=== PATIENT | female | born 2000 | race Hispanic/Latino ===

== ENCOUNTER 2019-09-14 12:31 | Emergency (ER) | payer OTHER ==
[~2019-09-14] VITALS: Ht 162.6 cm; Wt 90.7 kg
--- OUTSIDE RECORDS SUMMARY | 2019-09-14 12:33 | XMS REPORT | Clinical Summary ---
Author Author [employer] [facility] Organization [employer] [facility] Address Unknown Phone Unavailable Care Team Providers Care Pot Feeder Name Role Phone Asked, No Pcp PCP Unavailable Allergies Comments Active Allergy Reactions Severity Noted Date Adhesive Tape-Silicones Itching, Rash Low 2018 Medications No known medications Active Problems Problem Noted Date 07/23/2018 Encounters Care Team Description Date Type Specialty Dell Rios MD Vaginal bleeding (Primary Dx) 09/12/2019 Emergency Emergency Medicine after 09/13/2018 Social History Date Tobacco Use Types Packs/Day Years Used Former Smoker Cigarettes Smokeless Tobacco: Never Used Comments: pack per week prior to pregnan cy Drinks/Week oz/Week Comments Alcohol Use No Sex Assigned at Date Recorded Not on file Industry Job Start Date Occupation Not on file Not on file Not on file Travel End Travel History Travel Start No recent travel history available. Last Filed Vital Signs Reading Time Taken Comments Vital Sign 127/72 09/12/2019 12:16 PM CDT Blood Pressure 75 09/12/2019 12:16 PM CDT Pulse 36.8 C (98.3 F) 09/12/2019 12:16 PM CDT Temperature 18 09/12/2019 12:16 PM CDT Respiratory Rate 98% 09/12/2019 12:16 PM CDT Oxygen Saturation - - Inhaled Oxygen Concentration 90.7 kg (200 lb) 09/12/2019 12:13 PM CDT Weight 162.6 cm (5' 4") 09/12/2019 12:13 PM CDT Height 34.33 09/12/2019 12:13 PM CDT Body Mass Index Plan of Treatment Health Maintenance Due Date Last Done Comments CHLAMYDIA SCREENING 12/28/2018 12/28/2017 INFLUENZA VACCINE 11/05/2019 01/25/2018 Procedures Comments Procedure Name Priority Date/Time Associated Diag nosis US PELVIC TRANSVAGINAL STAT 09/12/2019 2:24 PM CDT US PELVIC TRANSABDOMINAL STAT 09/12/2019 2:23 PM CDT URINALYSIS SCREEN AND STAT 09/12/2019 MICROSCOPY, WITH REFLEX 1:40 PM CDT TO CULTURE URINE CULTURE STAT 09/12/2019 1:40 PM CDT ESTIMATED GFR STAT 09/12/2019 1:20 PM CDT RH TYPE STAT 09/12/2019 1:20 PM CDT HCG QUANTITATIVE, SERUM STAT 09/12/2019 1:20 PM CDT COMPREHENSIVE METABOLIC STAT 09/12/2019 PANEL 1:20 PM CDT HC COMPLETE BLD COUNT STAT 09/12/2019 W/AUTO DIFF 1:20 PM CDT after 09/13/2018 Results * US Pelvic Transvaginal (09/12/2019 2:24 PM CDT) Specimen Narrative Performed At EXAMINATION: US PELVIC TRANSABDOMINAL, US PELVIC TR ANSVAGINAL [facility] CLINICAL HISTORY: vaginal bleeding po ssible fibroids COMPARISON: None. TECHNIQUE:Transabdominal and endovagina l sonographic images of the pelvis were obtained. Grayscale, color Doppler, and spectral waveform analysis of the ovarian vessels was performed. FINDINGS: The uterus is retroverted and measures 6.3 x 3.5 x 4.4 cm. No uterine fibroids. The endometrial stripe measures 0.4 cm. The right ovary measures 3.4 x 2.0 x 1. 8 cm. Normal Doppler flow was present. The left ovary measures 3.5 x 1.7 x 1.9 cm. Normal Doppler flow was present. There is no free fluid in the pelvic cu l-de-sac. IMPRESSION: The uterus is retroverted with no evide nce of uterine fibroids. Otherwise, unremarkable pelvic ultrasound examinat ion. [facility]-[id number] Dictated and approved by radiology resi dent/fellow: Armand Lewis M.D. I, Candelaria Segura MD, personally revie wed the images and resident's/fellow's findings and agree with the final repor t. Procedure Note Interface, Radiology Results Incoming - 09/12/2019 3:01 PM CDT EXAMINATION: US PELVIC TRANSABDOMINAL, US PELVIC TRANSVAGINAL CLINICAL HISTORY: vaginal bleeding possible fibroids COMPARISON: None. TECHNIQUE:Transabdominal and endovaginal sonographic images of the pelvis were obtained. Grayscale, color Doppler, and spectral waveform analysis of the ovarian vessels was performed. FINDINGS: The uterus is retroverted and measures 6.3 x 3.5 x 4.4 cm. No uterine fibroids. The endometrial stripe measures 0.4 cm. The right ovary measures 3.4 x 2.0 x 1.8 cm. Normal Doppler flow was present. The left ovary measures 3.5 x 1.7 x 1.9 cm. Normal Doppler flow was present. There is no free fluid in the pelvic cul-de-sac. IMPRESSION: The uterus is retroverted with no evidence of uterine fibroids. Otherwise, unremarkable pelvic ultrasound examination. [facility]-[id number] Dictated and approved by family medicine resident/fellow: Armand Lewis M.D. I, Candelaria Segura MD, personally reviewed the images and resident's/fellow's findings and agree with the final report. Performing Organization Address City/State/[facility] Ph one Number [facility] [address] [place] [address] * US Pelvic Transabdominal (09/12/2019 2:23 PM CDT) Specimen Narrative Performed At EXAMINATION: US PELVIC TRANSABDOMINAL, US PELVIC TR ANSVAGINAL [facility] CLINICAL HISTORY: vaginal bleeding po ssible fibroids COMPARISON: None. TECHNIQUE:Transabdominal and endovagina l sonographic images of the pelvis were obtained. Grayscale, color Doppler, and spectral waveform analysis of the ovarian vessels was performed. FINDINGS: The uterus is retroverted and measures 6.3 x 3.5 x 4.4 cm. No uterine fibroids. The endometrial stripe measures 0.4 cm. The right ovary measures 3.4 x 2.0 x 1. 8 cm. Normal Doppler flow was present. The left ovary measures 3.5 x 1.7 x 1.9 cm. Normal Doppler flow was present. There is no free fluid in the pelvic cu l-de-sac. IMPRESSION: The uterus is retroverted with no evide nce of uterine fibroids. Otherwise, unremarkable pelvic ultrasound examinat ion. [facility]-[id number] Dictated and approved by radiology resi dent/fellow: Armand Lewis M.D. I, Candelaria Segura MD, personally revie wed the images and resident's/fellow's findings and agree with the final repor t. Procedure Note [facility], Radiology Results Incoming - 09/12/2019 3:01 PM CDT EXAMINATION: US PELVIC TRANSABDOMINAL, US PELVIC TRANSVAGINAL CLINICAL HISTORY: vaginal bleeding possible fibroids COMPARISON: None. TECHNIQUE:Transabdominal and endovaginal sonographic images of the pelvis were obtained. Grayscale, color Doppler, and spectral waveform analysis of the ovarian vessels was performed. FINDINGS: The uterus is retroverted and measures 6.3 x 3.5 x 4.4 cm. No uterine fibroids. The endometrial stripe measures 0.4 cm. The right ovary measures 3.4 x 2.0 x 1.8 cm. Normal Doppler flow was present. The left ovary measures 3.5 x 1.7 x 1.9 cm. Normal Doppler flow was present. There is no free fluid in the pelvic cul-de-sac. IMPRESSION: The uterus is retroverted with no evidence of uterine fibroids. Otherwise, unremarkable pelvic ultrasound examination. [facility]-[id number] Dictated and approved by family medicine resident/fellow: Armand Lewis M.D. I, Candelaria Segura MD, personally reviewed the images and resident's/fellow's findings and agree with the final report. Performing Organization Address City/State/[facility] Ph one Number [facility] [address] [place] [address] * Urinalysis screen and microscopy, with reflex to culture (09/12/2019 1:40 PM CDT) Specimen site Clean catch [facility] Color, UA Yellow [facility] Appearance, UA Clear [facility] Specific 1.026 1.001 - 1.035 [facility] gravity, UA [facility] pH, UA 5.0 5.0 - 8.5 [facility] Protein, UA 1+ (A) Negative [facility] Glucose, UA Negative Negative [facility] Ketones, UA 2+ (A) Negative [facility] Bilirubin, UA Negative Negative [facility] Blood, UA Large (A) Negative [facility] Nitrite, UA Negative Negative [facility] Urobilinogen, Negative <2.0 [facility] Leukocyte Negative Negative [facility] esterase, UA [facility] Epithelial Many Few /HPF [facility] cells, UA [facility] WBC, UA 0-5 0 - 4 /HPF [facility] RBC, UA 61-80 (H) 0 - 5 /HPF [facility] Bacteria, UA None seen None seen [facility] Yeast, UA None seen [facility] Yeast with None seen [facility] pseudohyphae, [facility] Specimen Urine Performing Organization Address City/[facility] Ph one Number [facility] DEPARTMENT [address] [place] [address] 58 PATHOLOGY AND GENOMIC MEDICINE [address] * Urine culture (09/12/2019 1:40 PM CDT) Urine culture SEE COMMENTComment: [facility] Bacteriuria screen negative. [facility] Specimen Urine Performing Organization Address [facility] one Number [facility] DEPARTMENT OF [address] [place] [address] [place] [address] 58 PATHOLOGY AND GENOMIC MEDICINE [address] * Estimated GFR (09/12/2019 1:20 PM CDT) Estimated GFR >=90 mL/min/1.73 m2 [facility] Comment: [facility] Interpretation G1 >=90 Normal or high G2 60-89 Mildly decreased G3a 45-59 Mildly to moderately decreased G3b 30-44 Moderately to severely decreased G4 15-29 Severely decreased G5 <15 Kidney failure The eGFR was calculated using the Chronic Kidney Disease Epidemiology Collaboration (CKD-EPI) equation. Interpretation is based on recommendations of the National Kidney Foundation-Kidney Disease Outcomes Quality Initiative (NKF-KDOQI) published in 2014. Specimen Performing Organization Address City/[facility] Ph one Number [facility] DEPARTMENT OF [address] [place] [address] [place], [place] [address] PATHOLOGY AND GENOMIC MEDICINE [address] [place] [id number] [facility] * RH type (09/12/2019 1:20 PM CDT) Rh type POS [facility] Specimen Blood Performing Organization Address [facility] Ph one Number [facility] DEPARTMENT OF [address] [place] [address]. [place], [place] [address] PATHOLOGY AND GENOMIC MEDICINE [address] [place] [address] * CBC with platelet and differential (09/12/2019 1:20 PM CDT) WBC 6.32 4.50 - 11.00 k/uL [facility] RBC 4.64 4.20 - 5.50 m/uL [facility] HGB 13.7 12.0 - 16.0 g/dL [facility] HCT 40.8 37.0 - 47.0 % [facility] MCV 87.9 82.0 - 100.0 fL [facility] MCH 29.5 27.0 - 34.0 pg [facility] MCHC 33.6 31.0 - 37.0 g/dL [facility] RDW - SD 41.1 37.0 - 55.0 fL [facility] MPV 11.4 8.8 - 13.2 fL [facility] Platelet count 328 150 - 400 k/uL [facility] Nucleated RBC 0.00 /100 WBC [facility] Neutrophils 59.8 39.0 - 69.0 % [facility] Lymphocytes 26.7 25.0 - 45.0 % [facility] Monocytes 8.4 0.0 - 10.0 % [facility] Eosinophils 4.0 0.0 - 5.0 % [facility] Basophils 0.8 0.0 - 1.0 % [facility] Specimen Blood Performing Organization Address City/[facility] Ph one Number [facility] DEPARTMENT OF [address] [place] [address] [place], [place] [address] PATHOLOGY AND GENOMIC MEDICINE [address] [place] [address] [facility] * hCG quantitative, serum (09/12/2019 1:20 PM CDT) hCG <1 0 - 5 mIU/mL [facility] quantitative, Comment: [facility] serum Reference range for HCG Quant [facility] applies to males and non- females. Post Menopausal 0.0 - 8.1 mIU/mL Specimen Blood Performing Organization Address City/State/[employer] Ph one Number [facility] [place] [address] [place], [place] [address] PATHOLOGY AND GENOMIC MEDICINE [facility] [address] [place] [address] [facility] * Comprehensive metabolic panel (09/12/2019 1:20 PM CDT) [facility] Sodium 136 135 - 148 mEq/L [facility] Potassium 4.0 3.5 - 5.0 mEq/L [facility] Chloride 101 98 - 112 mEq/L [facility] CO2 22 (L) 24 - 31 mEq/L [facility] Anion gap 13@ANIO 7 - 15 mEq/L [facility] BUN 11 6 - 20 mg/dL [facility] Creatinine 0.70 0.50 - 0.90 mg/dL [facility] Glucose 78 65 - 99 mg/dL [facility] Calcium 10.0 8.3 - 10.2 mg/dL [facility] Protein 7.7 6.3 - 8.3 g/dL [facility] Comment: [facility] [place] 4.6-7.0 g/dL 1 week 4.4-7.6 g/dL 7 months-1year 5.1-7.3 g/dL 1-2 years 5.6-7.5 g/dL >3 years 6.0-8.0 g/dL 18-150 6.3-8.3 g/dL Albumin 4.7 3.5 - 5.0 g/dL [facility] A/G ratio 1.6 0.7 - 3.8 [facility] Alkaline 55 35 - 104 U/L [facility] phosphatase [facility] AST 15 10 - 35 U/L [facility] ALT 10 5 - 50 U/L [facility] Total bilirubin 0.5 0.0 - 1.2 mg/dL [facility] Specimen Blood Performing Organization Address City/State/Zipcode Ph [place] [facility] [place] [address] [place] [address] PATHOLOGY AND GENOMIC MEDICINE [facility] [address] [place] [address] [facility] after 09/13/2018 Insurance Type Payer Benefit Subscriber ID Effective Phone Address Plan / Dates Group [employer] [facility] xxxxxxxxx [facility] [place] Present [facility] Advance Directives For more information, please contact: [phone] 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
--- OUTSIDE RECORDS SUMMARY | 2019-09-14 12:34 | XMS REPORT | Continuity of Care Document ---
Author Author [facility] t Organization [facility] Address [address] [place] [address] Phone Unavailable Care Team Providers Care Plug Saw Operator Name Role Phone Asked, Pcp No PCP Unavailable Gabriel ROCA, Wili Sharpe Attphys [phone] Payers Payer Name Policy Type Policy Number Effective Date Expiration Date [facility]/STAR [id number]/04/25 18-PresentO xxxxxxxxx 2018 00:00:00 Karthikeyan Ochoa Problems Condition Name Condition Details Condition Category Status Onset Date Resolution Date Last Treatment Date Treating Clinician Comments Source Disease Active 2018-07-23 00:00:00 Karthikeyan Ochoa Allergies, Adverse Reactions, Alerts Allergy Name Allergy Type Status Severity Reaction(s) Onset Date Inacti ve Date Treating Clinician Comments Source Adhesive Tape-Silicones Propensity to adverse reactions to drug Act luis enrique Itching, Rash 2018-07-24 00:00:00 Karthikeyan Ochoa No Known Allergies DA Active U 2018-05-24 00:00:00 [facility] No Known Drug Intolerances DA Active U 2008-10-02 00:00:0 0 [facility] Not Converted 80. See Text. DA Active U 2008-10-02 00:00 :00 [facility] Social History Social Habit Start Date Stop Date Quantity Comments Source History of tobacco use Cigarette Smoker Karthikeyan Ochoa Sex Assigned At [facility] Alcohol intake 2018-08-04 00:00:00 2018-08-04 00:00:00 Current non-drinker of alcohol (finding) Karthikeyan Ochoa Tobacco Comment 2017-12-08 00:00:00 2017-12-08 00:00:00 pack per week prior to Karthikeyan Ochoa Smoking Status Start Date Stop Date Source Former smoker 2018-08-04 00:00:00 2018-08-04 00:00:00 Karthikeyan Ochoa Medications This patient has no known medications. Vital Signs Vital Name Observation Time Observation Value Comments Source Systolic blood pressure 2019-09-12 12:16:04 127 mm[Hg] Karthikeyan Ochoa Diastolic blood pressure 2019-09-12 12:16:04 72 mm[Hg] Karthikeyan Ochoa Heart rate 2019-09-12 12:16:04 75 /min Karthikeyan Ochoa Body temperature 2019-09-12 12:16:04 36.83 [facility] Respiratory rate 2019-09-12 12:16:04 18 /min [facility] Oxygen saturation in Arterial blood by Pulse oximetry 09-11 12:16:04 98 /min Karthikeyan Ochoa Body height 2019-09-12 12:13:00 162.6 cm Karthikeyan Ochoa Body weight 2019-09-12 12:13:00 90.719 kg Karthikeyan Ochoa BMI 2019-09-12 12:13:00 34.33 kg/m2 Karthikeyan Ochoa Procedures Procedure Date / Time Performed Performing Clinician [facility] e US PELVIC TRANSVAGINAL 2019-09-12 14:24:07 Jason Riso US PELVIC TRANSABDOMINAL 2019-09-12 14:23:42 Jason Rios URINE CULTURE 2019-09-12 13:40:00 [facility] R[facility] URINALYSIS SCREEN AND MICROSCOPY, WITH REFLEX TO CULTURE 13:40:00 Jason Rios HC COMPLETE BLD COUNT W/AUTO DIFF 2019-09-12 13:20:00 Mikayla Rios se COMPREHENSIVE METABOLIC PANEL 2019-09-12 13:20:00 Jason Rios HCG QUANTITATIVE, SERUM 2019-09-12 13:20:00 Jason Rios RH TYPE 2019-09-12 13:20:00 Gabriel, Jason [facility] ESTIMATED GFR 2019-09-12 13:20:00 Gabriel, Jason [facility] Plan of Care Planned Activity Planned Date Details Comments Source Future Scheduled Test 2019-11-05 00:00:00 INFLUENZA VACCINE [code = INFLUENZA VACCINE] Karthikeyan Ochoa Future Scheduled Test 2018-12-28 00:00:00 CHLAMYDIA SCREENIN G [code = CHLAMYDIA SCREENING] [facility] Encounters Start Date/Time End Date/Time Encounter Type Admission Type Attendi [facility] Care Department Encounter ID Source 2019-09-12 00:00:00 2019-09-12 00:00:00 Emergency JASON RIOS 064 [id number] [facility] Results Test Description Test Time Test Comments Results Result Comments Source US Pelvic Transvaginal 2019-09-12 14:58:29 In [facility], Radiology Results 09/12/2019 3:01 PM CDTEXAMINATION: US PELVIC TRANSABDOMINAL, US PELVIC TRANSVAGINALCLINICAL HISTORY: vaginal bleeding possible fibroidsCOMPARISON: None.TECHNIQUE:Transabdominal and endovaginal sonographic images of the pelvis were obtained. Grayscale, color Doppler, and spectral waveform analysis of the ovarian vessels was performed.FINDINGS:The uterus is retroverted and measures 6.3 x 3.5 x 4.4 cm. No uterine fibroids.The endometrial stripe measures 0.4 cm. The right ovary measures 3.4 x 2.0 x 1.8 cm. Normal Doppler flow was present.The left ovary measures 3.5 x 1.7 x 1.9 cm. Normal Doppler flow was present.There is no free fluid in the pelvic cul-de-sac.IMPRESSION:The uterus is retroverted with no evidence of uterine fibroids. Otherwise, unremarkable pelvic ultrasound examination.[facility]- [id number] and approved by finance vice president/fellow: Armand Lewis M.D.I, Candelaria Segura MD, personally reviewed the images and resident's/fellow's findings and agree with the final report. Karthikeyan Ochoa US Pelvic Transabdominal 2019-09-12 14:58:29 Interface, Radiology Results 09/12/2019 3:01 PM CDTEXAMINATION: US PELVIC TRANSABDOMINAL, US PELVIC TRANSVAGINALCLINICAL HISTORY: vaginal bleeding possible fibroidsCOMPARISON: None.TECHNIQUE:Transabdominal and endovaginal sonographic images of the pelvis were obtained. Grayscale, color Doppler, and spectral waveform analysis of the ovarian vessels was performed.FINDINGS:The uterus is retroverted and measures 6.3 x 3.5 x 4.4 cm. No uterine fibroids.The endometrial stripe measures 0.4 cm. The right ovary measures 3.4 x 2.0 x 1.8 cm. Normal Doppler flow was present.The left ovary measures 3.5 x 1.7 x 1.9 cm. Normal Doppler flow was present.There is no free fluid in the pelvic cul-de-sac.IMPRESSION:The uterus is retroverted with no evidence of uterine fibroids. Otherwise, unremarkable pelvic ultrasound examination.[facility]- [id number] and approved by finance vice president/fellow: Adeline Quigley, Candelaria Segura MD, personally reviewed the images and resident's/fellow's findings and agree with the final report. [facility] Comprehensive metabolic panel 2019-09-12 14:05:00 Test Item Sodium (test code = 2951-2) 136 135- 148 mEq/L Potassium (test code = 2823-3) 4.0 3.5- 5.0 mEq/L Chloride (test code = 2075-0) 101 98- 112 mEq/L CO2 (test code = 2027-9) 22 24- 31 mEq/L L Anion gap (test code = 02065-3) 13@ANIO 7- 15 mEq/L BUN (test code = 3094-0) 11 mg/dL 6-20 Creatinine (test code = 2160-0) 0.70 mg/dL 0.5-0.9 Glucose (test code = 2345-7) 78 mg/dL 65-99 Calcium (test code = 98435-1) 10.0 mg/dL 8.3-10.2 Protein (test code = 2885-2) 7.7 g/dL 6.3-8.3 -[place] 4.6- 7.0 g/dL1 week 4.4-7.6 g/dL7 months-1year 5.1-7.3 g/dL1-2 years 5.6-7.5 g/dL>3 years 6.0-8.0 g/gY85-155 6.3-8.3 g/dL Albumin (test code = 1751-7) 4.7 g/dL 3.5-5 A/G ratio (test code = 1759-0) 1.6 0.7-3.8 Alkaline phosphatase (test code = 6768-6) 55 U/L 35-104 AST (test code = 1920-8) 15 U/L 10-35 ALT (test code = 1742-6) 10 U/L 5-50 Total bilirubin (test code = 1974-2) 0.5 mg/dL 0-1.2 Lab Interpretation (test code = 60657-5) Abnormal [facility] MethodistEstimated [id number] 14:05:00* Test Item Value Reference Range Interpretation Comments Estimated GFR (test code = 5488) >=90 mL/min/1.73 m2 Catergory Units InterpretationG1 >=90 Normal or highG2 60-89 Mildly uaummhdguH0c 45-59 Mildly to moderately mrwdksuohG3q 30-44 Moderately to severely decreasedG4 15-29 Severely decreasedG5 <15 Kidney failureThe eGFR was calculated using the Chronic Kidney Disease Epidemiology Collaboration (CKD-EPI) equation. Interpretation is based on recommendations of the National Kidney Foundation-Kidney Disease Outcomes Quality Initiative (NKF-KDOQI) published in 2014. [facility] MethodistRH [id number] 13:58:00* Test Item Value Reference Range Interpretation Comments Rh type (test code = 59379-8) POS [facility] MethodistUrine [id number] 13:54:37* Test Item Value Reference Range Interpretation Comments Urine culture (test code = 2542308) SEE COMMENT Bacteriuria screen negative. [facility] MethodistUrinalysis screen and microscopy, with reflex to culture 2019-09-12 13:54:35* Test Item Value Reference Range Interpretation Comments Specimen site (test code = 8116686) Clean catch Color, UA (test code = 5778-6) Yellow Appearance, UA (test code = 5767-9) Clear Specific gravity, UA (test code = 5811-5) 1.026 1.001-1.035 pH, UA (test code = 5803-2) 5.0 5.0-8.5 Protein, UA (test code = 79076-6) 1+ Negative A Glucose, UA (test code = 97624-5) Negative Negative Ketones, UA (test code = 2514-8) 2+ Negative A Bilirubin, UA (test code = 5770-3) Negative Negative Blood, UA (test code = 5794-3) Large Negative A Nitrite, UA (test code = 5802-4) Negative Negative Urobilinogen, UA (test code = 92035-0) Negative <2.0 Leukocyte esterase, UA (test code = 5799-2) Negative Negative Epithelial cells, UA (test code = 5787-7) Many Few /HPF WBC, UA (test code = 5821-4) 0-5 0- 4 /HPF RBC, UA (test code = 45004-1) 61-80 0- 5 /HPF H Bacteria, UA (test code = 82190-6) None seen None seen Yeast, UA (test code = 43606-2) None seen Yeast with pseudohyphae, UA (test code = 59402-6) None seen Lab Interpretation (test code = 30888-9) Abnormal [facility] MethodisthCG quantitative, [id number] 13:54:04* Test Item Value Reference Range Interpretation Comments hCG quantitative, serum (test code = 36266-8) <1 0- 5 mIU /mL Reference range for HCG Quant applies to males and non-females.Post Menopausal 0.0 - 8.1 mIU/mL [facility] MethodistCBC with platelet and [id number] 13:50:54* Test Item Value Reference Range Interpretation Comments WBC (test code = 76072-6) 6.32 4.50- 11.00 k/uL RBC (test code = 39493-3) 4.64 m/uL 4.2-5.5 HGB (test code = 718-7) 13.7 g/dL 12-16 HCT (test code = 4544-3) 40.8 % 37-47 MCV (test code = 787-2) 87.9 fL 82-100 MCH (test code = 785-6) 29.5 pg 27-34 MCHC (test code = 786-4) 33.6 g/dL 31-37 RDW - SD (test code = 66919-7) 41.1 fL 37-55 MPV (test code = 70162-2) 11.4 fL 8.8-13.2 Platelet count (test code = 06045-0) 328 150- 400 k/uL Nucleated RBC (test code = 58831-6) 0.00 /100 WBC Neutrophils (test code = 40506-4) 59.8 % 39-69 Lymphocytes (test code = 11241-8) 26.7 % 25-45 Monocytes (test code = 37532-9) 8.4 % 0-10 Eosinophils (test code = 62201-2) 4.0 % 0-5 Basophils (test code = 79806-1) 0.8 % 0-1 [facility] MethodistAMNISURE (ROM) [id number] 14:24:00* Test Item Value Reference Range Interpretation Comments AMNISURE (ROM) TEST (test code = AMNI) NEGATIVE NEGATIVE OPENED:04/13/2018
[2019-09-14] MEDS ORDERED: IBUPROFEN 600 MG TAB PO STA (12:43)
[2019-09-14 12:44] VITALS: BP 143/78
[2019-09-14] MEDS ORDERED: ONDANSETRON HCL 4 MG ORAL DISINTEGRATING TAB PO ONE (12:45)
--- NOTE | 2019-09-14 12:47 | Emergency Department Note ---
History of Present Illnes History of Present Illness Chief Complaint: Flu Like Symptoms History of Present Illness This is a 19 year old female STATES SHE CHECKED HER TEMP THIS MORNING AND IT WAS 102 C/O NAUSEA NO VOMITING C/O SORE THROAT, CHILLS, MUSCLE ACHES, AND MIGRAINE STATES SYMPTOMS STARTED LAST NIGHT. 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 Any updates have been documented here. Past Medical History Recent Fever: Yes Clinical Suspicion of Infectio: No New/Unexplained Change in Ment: No Past Medical History: Asthma Other Surgery: NOSE SX Social History Smoking Cessation: Never Smoker Counseling Performed: No Alcohol Use: Occasional Any Illegal Drug Use: No TB Exposure/Symptoms: No Physically hurt or threatened: No Other Last Tetanus: UTD Any Pre-Existing Lines (PICC,: No Is patient up to date on immun: Yes Last Flu: UTD Last Pneumovax: OOD Review of Systems Review of Systems Constitutional: Reports as per HPI, Reports chills, Reports fever EENTM: Reports throat pain Cardiovascular: Reports no symptoms Respiratory: Reports no symptoms; Denies cough Gastrointestinal: Reports no symptoms Genitourinary: Reports no symptoms Musculoskeletal: Reports no symptoms Integumentary: Reports no symptoms Neurological: Reports no symptoms Psychological: Reports no symptoms Endocrine: Reports no symptoms Hematological/Lymphatic: Reports no symptoms Review of other systems All other systems reviewed and negative. Physical Exam Related Data Allergies: Coded Allergies: No Known Allergies (Unverified , 07/28/10) Triage Vital Signs Vital Signs Date Time Temp Pulse Resp B/P (MAP) Pulse Ox O2 Delivery O2 Flow Rate FiO2 09/14/19 12:33 99.8 96 18 143/78 99 Vital signs reviewed: Yes Physical Exam CONSTITUTIONAL Constitutional: Reports well-developed, Reports well-nourished HENT HENT: Reports pharynx abnormal (O/P ERYTHEMATOUS WITHOUT EXUDATE, MILD SWELLING BILAT TONSILS, MIDLINE UVULA) HENT L/R: Reports left ext ear normal, Reports right ext ear normal EYES Eyes: Reports PERRL, Reports conjunctivae normal NECK Neck: Reports ROM normal PULMONARY Pulmonary: Reports effort normal, Reports breath sounds normal CARDIOVASCULAR Cardiovascular: Reports regular rhythm, Reports heart sounds normal, Reports capillary refill normal, Reports normal rate GASTROINTESTINAL Abdominal: Reports soft, Reports nontender, Reports bowel sounds normal GENITOURINARY Genitourinary: Reports exam deferred SKIN Skin: Reports warm, Reports dry MUSCULOSKELETAL Musculoskeletal: Reports ROM normal NEUROLOGICAL Neurological: Reports alert, Reports oriented x 3, Reports no gross motor or sensory deficits PSYCHOLOGICAL Psychological: Reports mood/affect normal, Reports judgement normal Assessment & Plan Medical Decision Making MDM WILL TREAT FOR POSSIBLE STREP PHARYNGITIS WITH Z-PACK AND ALSO GAVE ZOFRAN ODT, WILL SWAB FOR COVID19. VSS, AFEBRILE, O2 SAT 100% ON RA, PT DOES NOT APPEAR ACUTELY ILL. ADVISED TO SELF-QUARANTINE, SPOKE WITH HER ABOUT PRONING/POSITIONING, F/U WITH PCP Assessment & Plan Final Impression: (1) Pharyngitis Depart Disposition: HOME, SELF-CARE Last Vital Signs Date Time Temp Pulse Resp B/P (MAP) Pulse Ox O2 Delivery O2 Flow Rate FiO2 09/14/19 12:33 99.8 96 18 143/78 99 Home Meds No Active Prescriptions or Reported Meds Medications in the ED Ondansetron HCl 4 mg ONCE ONCE PO ; Start 09/14/19 at 12:45; Stop 09/14/19 at 12:46; Status UNV Ibuprofen 600 mg ONCE STAT PO ; Start 09/14/19 at 12:43; Stop 09/14/19 at 12:44; Status UNV JAKI DE LOS SANTOS MD Sep 14, 2019 12:47
== END 2019-09-14 12:52 | disposition home or self-care (01) ==
LOC: ER 12:31
DX: R50.9 Fever, unspecified (principal); J02.9 Acute pharyngitis, unspecified; Z01.84 Encounter for antibody response examination; J45.909 Unspecified asthma, uncomplicated
CPT/HCPCS: 87635; 99283; Q0162